=== PATIENT | male | born 1955 | race Caucasian/White ===

== ENCOUNTER 2018-06-01 08:12 | Emergency (ER) | payer OTHER ==
[~2018-06-01] VITALS: Ht 172.7 cm; Wt 68.9 kg
--- NOTE | 2018-06-01 09:23 | ED GENERAL ADULT ---
History of Present Illness General Chief Complaint: General Adult Stated Complaint: PT STATES " I POPPED A HEMMERHOID" Source: patient Exam Limitations: no limitations Vital Signs & Intake/Output Vital Signs & Intake/Output Vital Signs Date Time Temp Pulse Resp B/P B/P Pulse O2 O2 Flow FiO2 Mean Ox Delivery Rate 06/01 1128 82 180/80 06/01 0823 98.3 97 15 172/92 96 Room Air Room Air Allergies Coded Allergies: No Known Allergies (06/01/18) Triage Note: PT TO ED FOR "POPPED HEMMORHOID" THAT STARTED BLEEDING BRIGHT RED BLOOD SINCE THIS MORNING. Triage Nurses Notes Reviewed? yes HPI: 63-year-old male who is not anticoagulated comes in with rectal bleed. He reports that he 'popped a hemorrhoid". The patient thought that he felt a hemorrhoid which has now gone back up. He reports 5 years ago he had rectal bleed which stopped spontaneously as well. He denies any abdominal pain, dizziness, lightheadedness, blood thinners. The patient reports that he woke up this morning and there was rectal bleeding which has subsequently slowed down. Past History Travel History Traveled to [place] past 21 day No Medical History Any Pertinent Medical History? 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 No Review of Systems Review of Systems Constitutional: Denies: chills, diaphoresis. EENTM: Denies: blurred vision, double vision, visual changes. Respiratory: Denies: cough, hemoptysis, orthopnea. Cardiovascular: Denies: chest pain, edema, orthopena. GI: Denies: abdominal pain, bloating, constipation. Genitourinary: Denies: discharge, dysuria, frequency. Musculoskeletal: Denies: back pain, gout, joint pain. Skin: Denies: change in skin color, change in hair/nails. Neurological/Psychological: Denies: anxiety, ataxia. Physical Exam Physical Exam General Appearance: well developed/nourished, no apparent distress, alert, awake Head: atraumatic, normal appearance, active bleeding Eyes: Bilateral: PERRL, EOMI. Ears, Nose, Throat: normal pharynx, normal ENT inspection Neck: normal inspection, supple Respiratory: normal breath sounds, chest non-tender Cardiovascular: regular rate/rhythm, edema Gastrointestinal: normal bowel sounds, soft, non-tender Rectal: no external hemorrhoid. no pain. small strek of blood on rectal exam. Back: normal inspection, normal range of motion Neurologic/Psych: no motor/sensory deficits, awake, alert, oriented x 3 Core Measures ACS in differential dx? No CVA/TIA Diagnosis: No Sepsis Present: No Sepsis Focused Exam Completed? No Progress Differential Diagnoses . Plan of Care: Orders Procedure Date/time Status Saline Lock 06/01 857 Active COMPREHENSIVE METABOLIC PANEL 06/01 857 Complete CBC WITHOUT DIFFERENTIAL 06/01 857 Complete TYPE & SCREEN (NOT X-MATCH) 06/01 857 Complete Laboratory Tests 06/01/18 0919: Anion Gap 5, Estimated GFR > 60, BUN/Creatinine Ratio 26.7 H, Glucose 130 H, Calcium 9.6, Total Bilirubin 0.4, AST 23, ALT 32, Alkaline Phosphatase 68, Total Protein 6.4, Albumin 4.0, Globulin 2.4, Albumin/Globulin Ratio 1.7, CBC w Diff NO MAN DIFF REQ, RBC 4.24 L, MCV 92.6, MCH 32.1 H, MCHC 34.7, RDW 13.7, MPV 7.2 L, Gran % 78.9 H, Lymphocytes % 14.3 L, Monocytes % 6.0, Eosinophils % 0.5, Basophils % 0.3, Absolute Granulocytes 6.7 H, Absolute Lymphocytes 1.2, Absolute Monocytes 0.5, Absolute Eosinophils 0, Absolute Basophils 0 Initial ED EKG: none Comments: Likely stable, minimal rectal bleed. Patient is 63 has never had a colonoscopy. He is a smoker. The patient has lower GI bleed which he has had in the past as well but never got a workup. Plan: We will check the patient's hemoglobin. 1145 the patient has hemoglobin of 13.6. rechecked orthostatics. The patient had no significant change in heart rate. His blood pressure was on the higher side, but we will not change his blood pressure regimen at this time. There was a small "drop" in the blood pressure but that change on rechecking the blood pressure. The patient had no symptoms. He walked around the emergency room. [place] well. As noted on my exam, minimal bleeding was noted. The patient was offered admission but the patient wants to have it treated as an outpatient. He has his family with him, they have promised that the patient will get follow- up. Also the patient is given strict emergency room return warnings including warnings for acute blood loss. The patient will be asked to stop his aspirin at this time continue his blood pressure medication though. The patient will be asked to follow-up with his PCP and we will refer him to GI. The patient is comfortable with this plan. Abdomen remains soft and benign. Patient is nontoxic. Departure Departure Time of Disposition: 1146 Disposition: HOME OR SELF CARE Condition: Stable Clinical Impression Primary Impression: Rectal bleed Referrals: Bashir TOPETE,Fidencio Yip MD,Ruben Yoder MD,Chinedu George (PCP/Family) Additional Instructions: Stop your aspirin. Return immediately if you see bleeding, you feel dizzy, lightheaded. Return if there is any concern. Return for abdominal pain. Contact her primary doctor today, asked him for follow-up and see a GI doctor within the next 1 week. If you have trouble getting to see GI doctor, return to the emergency room. Departure Forms: Customer Survey General Discharge Information Critical Care Note Critical Care Note Critical Care Time: non-applicable
[2018-06-01 09:33] LABS: ABSOLUTE BASOPHIL COUNT 0 /CUMM (0.0-0.2); ABSOLUTE EOSINOPHIL COUNT 0 /CUMM (0.0-0.7); ABSOLUTE GRANULOCYTE CT 6.7 /CUMM (1.4-6.5); ABSOLUTE LYMPH COUNT 1.2 /CUMM (1.2-3.4); ABSOLUTE MONOCYTE COUNT 0.5 /CUMM (0.10-0.60); BASOPHIL % 0.3 % (0.0-2.0); EOSINOPHIL % 0.5 % (0-5); GRANULOCYTE % 78.9 % (42.2-75.2); HEMATOCRIT 39.2 % (42-52); MEAN CORPUSCULAR HGB 32.1 PG (27.0-31.0); MEAN CORPUSCULAR HGB CONC 34.7 G/DL (33.0-37.0); MEAN CORPUSCULAR VOLUME 92.6 FL (80.0-94.0); MEAN PLATELET VOLUME 7.2 FL (7.4-10.4); PLATELET COUNT 320 /CUMM (130-400); RBC DISTRIBUTION WIDTH 13.7 % (11.5-14.5); RED BLOOD CELL CT 4.24 /CUMM (4.70-6.10); WHITE BLOOD CELL COUNT 8.5 /CUMM (4.8-10.8)
[2018-06-01 11:28] VITALS: BP 140/82
== END 2018-06-01 11:57 ==
LOC: ERH 08:12
PROVIDERS: Emergency Medicine
DX: K62.5 Hemorrhage of anus and rectum (principal); I10 Essential (primary) hypertension; F17.210 Nicotine dependence, cigarettes, uncomplicated